=== PATIENT | female | born 1955 | race Caucasian/White ===

== ENCOUNTER 2024-10-20 14:38 | Outpatient (CLI) | payer MEDICARE, MEDICAID ==
--- NOTE | 2024-10-20 16:01 | RADIOLOGY REPORT ---
EXAM: MR MRI LOWER EXTREMITY LEFT INDICATION: LEFT FOOT PAIN, EFFUSION, LEFT ANKLE TECHNIQUE: Multiplanar and multisequence MR imaging of the left ankle was performed in the absence of gadolinium contrast. COMPARISON: None FINDINGS: [ on sagittal images Achilles tendon is intact. Plantar fascia shows partial tear near its insertion point into the plantar surface of the Achilles. No joint effusion. Sinus tarsi is unremarkable On coronal images articular surfaces of the tibiotalar joint are smooth. Thickening and increased signal in the deltoid ligament probably due to sprain. Spring ligament intac t. Calcaneal fibular ligament intact On transaxial images the distal syndesmotic ligaments are intact. Anterior and posterior talofibular ligaments are intact Posterior tibialis flexor digitorum and flexor hallucis longus tendons are intact. Partial interlaminar tear of the peroneus brevis tendon IMPRESSION: 1. Partial tears of the plantar fascia at its insertion point into the plantar surface of the calcane us 2. Partial tear of the peroneus brevis tendon 3. Mild sprain of the deltoid ligament
== END 2024-10-20 23:59 | disposition home or self-care (01) ==
LOC: MRI02 14:38
PROVIDERS: ATTEND Podiatrist Foot & Ankle Surgery
DX: S93.422A Sprain of deltoid ligament of left ankle, initial encounter (principal); M79.672 Pain in left foot; M25.472 Effusion, left ankle; M76.72 Peroneal tendinitis, left leg; M21.6X2 Other acquired deformities of left foot; X58.XXXA Exposure to other specified factors, initial encounter; Y93.89 Activity, other specified; Y92.89 Other specified places as the place of occurrence of the external cause; Y99.8 Other external cause status
CPT/HCPCS: 73721